=== PATIENT | male | born 1980 | race Caucasian/White ===

== ENCOUNTER 2016-08-10 18:27 | Emergency (ER) | payer BC ==
[2016-08-10 18:39] VITALS: BP 132/75; PULSE 97; RESP 18; TEMP 98.7
--- NOTE | 2016-08-10 18:54 | ED ---
Psych HPI - General Source: patient, RN notes reviewed Mode of arrival: ambulatory - History of Present Illness MD Complaint: suicidal ideation, feels depressed <Erick Lam - Last Filed: 08/10/16 18:52> <Ney Dempsey - Last Filed: 08/11/16 02:45> - General Chief Complaint: Psychiatric Symptoms Stated Complaint: etoh, and suicidal Time Seen by Provider: 08/10/16 18:40 - History of Present Illness Initial Comments: Is a 36-year-old male with a history of alcoholism and depression as well as suicidal ideation the past who states he rarely drinks about one fifth of whiskey per night but since last night he drink 2-1/2 fist with last drink being approximately 2 PM this afternoon. He admits to being depressed suicidal he has had thoughts of shooting himself he does have access to firearms. He cannot really state why today he feels suicidal. He does state that this is because he woke up. He denies any street drugs does not smoke. He denies going through DTs in the past he denies any history of pancreatitis. (Erick Lam) - Related Data Allergies Allergy/AdvReac Type Severity Reaction Status Date / Time Penicillins Allergy Unknown Verified 08/10/16 19:34 Childhood Review of Systems ROS Other: All systems not noted in ROS Statement are negative. <Erick Lam - Last Filed: 08/10/16 18:52> ROS Other: All systems not noted in ROS Statement are negative. <Ney Dempsey - Last Filed: 08/11/16 02:45> ROS Statement: Those systems with pertinent positive or pertinent negative responses have been documented in the HPI. Past Medical History Past Medical History: No Reported History History of Any Multi-Drug Resistant Organisms: None Reported Past Surgical History: No Surgical Hx Reported Past Psychological History: Depression Smoking Status: Never smoker Past Alcohol Use History: Daily Past Drug Use History: None Reported <Erick Lam - Last Filed: 08/10/16 18:52> General Exam Limitations: no limitations General appearance: alert, in no apparent distress Head exam: Present: atraumatic, normocephalic, normal inspection Eye exam: Present: normal appearance, PERRL, EOMI. Absent: scleral icterus, conjunctival injection, periorbital swelling ENT exam: Present: normal exam, mucous membranes moist Neck exam: Present: normal inspection. Absent: tenderness, meningismus, lymphadenopathy Respiratory exam: Present: normal lung sounds bilaterally. Absent: respiratory distress, wheezes, rales, rhonchi, stridor Cardiovascular Exam: Present: regular rate, normal rhythm, normal heart sounds. Absent: systolic murmur, diastolic murmur, rubs, gallop, clicks GI/Abdominal exam: Present: soft, normal bowel sounds. Absent: distended, tenderness, guarding, rebound, rigid Extremities exam: Present: normal inspection, full ROM, normal capillary refill. Absent: tenderness, pedal edema, joint swelling, calf tenderness Back exam: Present: normal inspection Neurological exam: Present: alert, oriented X3, CN II-XII intact Psychiatric exam: Present: depressed, suicidal ideation Skin exam: Present: warm, dry, intact, normal color. Absent: rash <Erick Lam - Last Filed: 08/10/16 18:52> <Ney Dempsey - Last Filed: 08/11/16 02:45> - General Exam Comments Initial Comments: This is a well-developed well-nourished awake alert male he is oriented 3 (Erick Lam) Medical Decision Making <Erick Lam - Last Filed: 08/10/16 18:52> - Lab Data Result diagrams: 08/10/16 17:12 08/10/16 17:12 <Ney Dempsey - Last Filed: 08/11/16 02:45> - Medical Decision Making I receive this patient has a sign out pending the behavioral health evaluation. The patient is under the legal limit for alcohol 1 evaluated. When I saw the patient he was denying suicidal ideation. I was informed that the patient does have access to both guns and other alcohol. I recommended to the family that they petition him but they are declining this. I did explain that he is at high risk of suicide and that worried he might family member I would filed a petition based on what he was stating and have him kept in the hospital. Family is unwilling to filed a petition because they fear angering the patient. However I did not see him or hear him making any suicidal gestures or remarks, so do not have grounds to filed the clinical certification. The patient is wesly for safety at this time. At this point I have no grounds to keep him against his will. (Trachy,Ney) - Lab Data Lab Results 08/10/16 08/10/16 08/10/16 Range/Units 17:12 17:12 17:12 WBC 5.6 (3.8-10.6) k/uL RBC 5.36 (4.30-5.90) m/uL Hgb 16.8 (13.0-17.5) gm/dL Hct 49.7 (39.0-53.0) % MCV 92.7 (80.0-100.0) fL MCH 31.4 (25.0-35.0) pg MCHC 33.9 (31.0-37.0) g/dL RDW 13.0 (11.5-15.5) % Plt Count 247 (150-450) k/uL Neutrophils % 67 % Lymphocytes % 22 % Monocytes % 5 % Eosinophils % 2 % Basophils % 1 % Neutrophils # 3.7 (1.3-7.7) k/uL Lymphocytes # 1.2 (1.0-4.8) k/uL Monocytes # 0.3 (0-1.0) k/uL Eosinophils # 0.1 (0-0.7) k/uL Basophils # 0.1 (0-0.2) k/uL Sodium 147 H (137-145) mmol/L Potassium 4.6 (3.5-5.1) mmol/L Chloride 108 H (98-107) mmol/L Carbon Dioxide 25 (22-30) mmol/L Anion Gap 14 mmol/L BUN 15 (9-20) mg/dL Creatinine 1.22 (0.66-1.25) mg/dL Est GFR (MDRD) Af Amer >60 (>60 ml/min/1.73 sqM) Est GFR (MDRD) Non-Af >60 (>60 ml/min/1.73 sqM) Glucose 89 (74-99) mg/dL Calcium 9.0 (8.4-10.2) mg/dL Magnesium 2.2 (1.6-2.3) mg/dL Total Bilirubin 0.7 (0.2-1.3) mg/dL AST 52 (17-59) U/L ALT 69 (21-72) U/L Alkaline Phosphatase 50 (38-126) U/L Total Protein 7.7 (6.3-8.2) g/dL Albumin 4.5 (3.5-5.0) g/dL Amylase 57 (30-110) U/L Lipase 79 (23-300) U/L Urine Opiates Screen Not Detected (NotDetected) Ur Oxycodone Screen Not Detected (NotDetected) Urine Methadone Screen Not Detected (NotDetected) Ur Propoxyphene Screen Not Detected (NotDetected) Ur Barbiturates Screen Not Detected (NotDetected) U Tricyclic Antidepress Not Detected (NotDetected) Ur Phencyclidine Scrn Not Detected (NotDetected) Ur Amphetamines Screen Not Detected (NotDetected) U Methamphetamines Scrn Not Detected (NotDetected) U Benzodiazepines Scrn Not Detected (NotDetected) Urine Cocaine Screen Not Detected (NotDetected) U Marijuana (THC) Screen Not Detected (NotDetected) Serum Alcohol 353 mg/dL Disposition <Erick Lam - Last Filed: 08/10/16 18:52> <Ney Dempsey - Last Filed: 08/11/16 02:45> Clinical Impression: Alcohol intoxication, Suicidal ideation Disposition: Left Against Medical Advice Instructions: Alcohol Intoxication (ED), Suicide Prevention for Adults (ED) Referrals: Nonstaff,Physician [Primary Care Provider] - 1-2 days
[2016-08-10 19:21] LABS: Basophils # (A) 0.1 k/uL (0-0.2); Basophils % (A) 1 %; CHCM 34.7; Eosinophils # (A) 0.1 k/uL (0-0.7); Eosinophils % (A) 2 %; HCT 49.7 % (39.0-53.0); HDW 2.46; HGB 16.8 gm/dL (13.0-17.5); Luc # (Auto) 0.21; Luc % (Auto) 4; Lymphocytes # (A) 1.2 k/uL (1.0-4.8); Lymphocytes % (A) 22 %; MCH 31.4 pg (25.0-35.0); MCHC 33.9 g/dL (31.0-37.0); MCV 92.7 fL (80.0-100.0); Mean Platelet Volume 7.2; Monocytes # (A) 0.3 k/uL (0-1.0); Monocytes % (A) 5 %; Neutrophils # (A) 3.7 k/uL (1.3-7.7); Neutrophils % (A) 67 %; RBC 5.36 m/uL (4.30-5.90); WBC 5.6 k/uL (3.8-10.6); WBC (Perox) 5.66
[2016-08-10 19:36] LABS: ALT 69 U/L (21-72); AST 52 U/L (17-59); Alkaline Phosphatase 50 U/L (38-126); Amylase 57 U/L (30-110); Anion Gap 14 mmol/L; Blood Urea Nitrogen 15 mg/dL (9-20); Carbon Dioxide 25 mmol/L (22-30); Chloride 108 mmol/L (98-107); Glucose 89 mg/dL (74-99); Magnesium 2.2 mg/dL (1.6-2.3); Non-African American GFR(MDRD) >60 (>60 ml/min/1.73 sqM); Potassium 4.6 mmol/L (3.5-5.1); Sodium 147 mmol/L (137-145); Total Bilirubin 0.7 mg/dL (0.2-1.3); Total Protein 7.7 g/dL (6.3-8.2)
[2016-08-10 19:51] LABS: Alcohol 353 mg/dL
== END 2016-08-11 02:57 | disposition left against medical advice (07) ==
LOC: EC 18:27
DX: R45.851 Suicidal ideations (principal); F10.120 Alcohol abuse with intoxication, uncomplicated; F32.9 Major depressive disorder, single episode, unspecified; Z88.0 Allergy status to penicillin; Z53.20 Procedure and treatment not carried out because of patient's decision for unspecified reasons
CPT/HCPCS: 36415; 80053; 80306; 80320; 82075; 82150; 83690; 83735; 85025; 99284